=== PATIENT | male | born 1955 | race Caucasian/White ===

== ENCOUNTER 2016-12-25 12:57 | Inpatient (IN) | payer OTHER, MEDICARE ==
[~2016-12-25] VITALS: Ht 185.4 cm; Wt 78.0 kg
--- NOTE | 2016-12-25 13:10 | NUR ---
61 YO MALE BIBA FROM PD. PER PEC, PT WAS ARRESTED THIS AM, PD WAS CALLED AND THERE WAS A PICTURE FOUND ON HIS PHONE OF HIM "HOLDING A GUN IN HIS MOUTH" WHEN ASKED, PT ADMITES TO TAKING THE PICTURE HIMSELF. WHEN ASKED IF SI AT THIS TIME, PT STATES "YES, ALL THE TIME" "MY LAST YEAR, MY BROTHER JUST , IM ALL ALONE NOW" PT TEARFUL AT THIS TIME. SECUIRTY AT BEDSIDE FOR WANDING. PT CHANGING INTO HOSP SCRUBS AT THIS TIME. PT CALM AND COOPERATIVE. SITTER PRESENT.
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
--- NOTE | 2016-12-25 13:47 | NUR ---
SKIN BIOPSY BANDAIDS CHANGED PER PATIENT REQUEST. NEW BANDANGES WITH BACITRACIN APPLIED. PT IS CALM AND C/O BACK PAIN "I USUALLY TAKE 4-5 10MG PERCOCETS EVERY DAY FOR THE PAIN"
[2016-12-25 14:29] LABS: ABSOLUTE BASOPHIL COUNT 0 /CUMM (0.0-0.2); ABSOLUTE EOSINOPHIL COUNT 0 /CUMM (0.0-0.7); ABSOLUTE GRANULOCYTE CT 6.5 /CUMM (1.4-6.5); ABSOLUTE LYMPH COUNT 2.3 /CUMM (1.2-3.4); ABSOLUTE MONOCYTE COUNT 0.4 /CUMM (0.10-0.60); BASOPHIL % 0.3 % (0.0-2.0); EOSINOPHIL % 0.2 % (0-5); GRANULOCYTE % 70.2 % (42.2-75.2); MEAN CORPUSCULAR HGB 29.8 PG (27.0-31.0); MEAN CORPUSCULAR VOLUME 87.8 FL (80.0-94.0); MEAN PLATELET VOLUME 8.3 FL (7.4-10.4); PLATELET COUNT 296 /CUMM (130-400); RED BLOOD CELL CT 4.79 /CUMM (4.70-6.10); WHITE BLOOD CELL COUNT 9.2 /CUMM (4.8-10.8)
--- NOTE | 2016-12-25 14:42 | NUR ---
URINE OBTAINED AND SENT TO LAB.
[2016-12-25] MEDS ORDERED: OXYCODONE-ACET1 EAC1 PO (15:38)
[2016-12-25] MEDS ORDERED: DICLOFENAC POTA50 M1 PO (15:38)
[2016-12-25] MEDS ORDERED: RAMIPRIL5 M1 PO (15:38)
[2016-12-25] MEDS ORDERED: NEURONTIN800 M2 PO (15:38)
[2016-12-25] MEDS ORDERED: ASPIRIN81 M4 PO (15:39)
[2016-12-25] MEDS ORDERED: PANTOPRAZOLE SO40 M1 PO (15:39)
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
--- NOTE | 2016-12-25 16:58 | NUR ---
PT MEDICATED WITH 2 PERCOCETS PER ORDER AT THIS TIME. [facility] CALLED FOR NEUROTIN.PT RESTING ON STRETCHER. OFFERS NO COMPLAINTS AT THIS TIME. SITTER REMAINS PRESRNT
--- NOTE | 2016-12-25 17:10 | IP CRISIS DIAG ASSESS PSYCH ---
See Addendum Diagnostic Assessment Basic Assessment Insurance Authorization: Insurance #1: Insurance name: MEDICARE A Phone number: Policy number: [id number] Group number: Authorization number: 1) Medicare A B- No precert required 2) Massiel livingston [facility]- Called twice and spoke to different representatives. Was told that Shannon would call back for precertification and there were two people ahead in the Que. Will await a call back from Shannon to complete pre- certification. Primary Care Physician: Patient's PCP: PATRICK PATEL MD PCP's Patient's Quote: "I would rather be than be here doing this." Present Illness: The patient is a 61 year old male, brought by the police to the ED with a complaint of suicidal ideation and depression. The patient presented as sad, tearful, depressed, hopeless and helpless. The pt. reports current suicidal ideation, stating "I'd rather be , I would rather be than be doing this." The patient reports no prior suicide attempts. However, the patient reports that he made a suicidal gesture (he took a picture of himself pointing a pistol towards the side of his head), at the beginning of this month. The patient states "I was going to shoot myself. I could not take the emptiness anymore." The patient reports his friend called the police, after seeing the picture and he was arrested for illegal possession of a firearm. The patient reports decreased motivation and energy, interrupted sleep (sleeping approximately 4 hours per night, partly due to chronic pain), and decreased appetite ("I do not eat much and have no appetite."). The patient reports current depression of 8 of 10 and anxiety of 5 of 10 on a scale of 0 to 10, 10 being most severe.The patient denies HI, auditory hallucinations and visual hallucinations. The patient identifies his primary trigger as being very lonely, since the of his approximately 2 years ago (they were for 27 years). He states that recently his brother at the beginning of this month, (he states they were "best friends"). The patient states that due to his feeling lonely, he sent approximately $30,000 to a woman in [place] and $30,000 to a woman in [place], both of which he met on the internet. Additionally, the patient reports renting out three of the rooms, in his single family house. 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 The patient identifies other triggers, as being his finances and not speaking to his children for many years. The patient reports no prior inpatient psychiatric hospitalizations. The patient reports seeing Dr. Jacob Bowman for depression and grief counseling following the of his , but refusing to take the medication prescribed to him. The patient reports he continues to feel severely depressed and unsafe to return home. The patient is agreeable to voluntary admission for inpatient treatment. Spoke to patient's friend, Theo Santos . Theo states that he and the patient have been best friends for over 20 years. Theo reports the patient has been increasingly depressed since the of his . Theo states he speaks with the patient daily and sees him once or twice per week. Theo states the patient has been going through "bouts of depression" that he tries to talk him out of. Theo reports the patient has made suicidal statements in the past. Theo states "Sometimes I feel that if it were not for me, he would have done it." Theo states the patient's depression has worsened since the recent of his brother the beginning of this month. Theo states he is pleased that the patient is getting the help he needs and feels that inpatient treatment weill help him. This report prepared by Zi Javed MSW Wool Sorter and signed off by [facility] Patient's Address: [address] [place] [address] Other Who Do You Live With? Other (see notes) (Pt. rents rooms to 3 tenants) Feel Safe Where You Live? No (Pt. rpts. tenanant is problem) Feel Safe in Your Relationship Yes Marital Status: Do You Have Children? Yes Ages? 38 & 36 Primary Language? Spanish Language(s) Spoken At Home: Spanish Family/Informants Interviewed: Friend-Theo Tom Allergies - Coded Allergies: meperidine (VOMIT 01/02/16) Current Medications - Scheduled Medications Aspirin (Aspirin*) 81 MG TAB.CHEW 1 TAB PO DAILY HEART HEALTH (Reported) Entered as Reported by INDRA VILLAFANA on 12/25/16 153 Diclofenac Potassium 50 MG TABLET 3 TAB PO BID PAIN #180 (Reported) Entered as Reported by INDRA VILLAFANA on 12/25/16 153 Gabapentin (Neurontin) 800 MG TABLET 1 TAB PO TID PAIN #270 (Reported) Entered as Reported by INDRA VILLAFANA on 12/25/16 1538 Oxycodone HCl/Acetaminophen (Oxycodone-Acetaminophen 10-325) 10 MG-325 MG TABLET 1 TAB PO 5 TIMES A DAY PAIN #140 (Reported) Entered as Reported by INDRA VILLAFANA on 12/25/16 153 Pantoprazole Sodium 40 MG TABLET.DR 1 TAB PO DAILY GI #90 (Reported) Entered as Reported by INDRA VILLAFANA on 12/25/16 153 Ramipril 5 MG CAPSULE 1 CAP PO DAILY HEART #90 (Reported) Entered as Reported by INDRA VILLAFANA on 12/25/16 153 Consequences of Psych Med Use: Patient does not take any psychiatric medications currently. Comment: None Lab Results: Laboratory Tests 12/25/16 1428: Urine Opiates Screen 285.00, Methadone Screen < 40, Barbiturate Screen < 60, Ur Phencyclidine Scrn < 6.00, Amphetamines Screen < 100, U Benzodiazepines Scrn < 85, Urine Cocaine Screen < 50, Urine Cannabis Screen < 5.00 12/25/16 1423: Anion Gap 11, Estimated GFR > 60, BUN/Creatinine Ratio 15.6, Glucose 115 H, Calcium 9.9, Total Bilirubin 1.1, AST 15 L, ALT 30, Alkaline Phosphatase 63, Total Protein 7.3, Albumin 4.2, Globulin 3.1, Albumin/Globulin Ratio 1.4, TSH 0.731, Free T4 1.54, CBC w Diff NO MAN DIFF REQ, RBC 4.79, MCV 87.8, MCH 29.8, RDW 13.0, MPV 8.3, Gran % 70.2, Lymphocytes % 24.7, Monocytes % 4.6, Eosinophils % 0.2, Basophils % 0.3, Absolute Granulocytes 6.5, Absolute Lymphocytes 2.3, Absolute Monocytes 0.4, Absolute Eosinophils 0, Absolute Basophils 0, PUBS MCHC 34.0, Serum Alcohol < 10.0 Toxicology Screen Completed? Yes Results: negative Symptoms of Use: N/A Past History Past Medical History Medical History: Diabetes Abuse/Trauma History Trauma History/Current Trauma: Denies Legal History Current Legal Status: Patient on bail for charge of illegal possession of a firearm with next court date of 01/14/17 Have you ever been arrested? Yes Number of Arrests: [address] Dates: 01/14/17 for illegal possession of firearm Marina Manager N/A Psychosocial History Strengths/Capabilities: The patient has insight into his triggers and is able to ask for help. The patient has a supportive best friend. Physical Limitations (Interventions): None noted Psychiatric Treatment History Psych Treatment Psychiatric Treatment Yes Inpatient Treatment No Outpatient Treatment Yes Location of Treatment Dr. Jacob Bowman Reason for Treatment Grief Counseling & Depression Dates of Treatment Approx. 1 year ago Response to Treatment The patient reports refusing to take the medication prescribed by provider and stopped seeing the doctor. Diagnosis by History: Depression Risk Factors: access to lethal means, chronic/serious med cond., history of suicide atmpts (Suicidal gesture), poor impulse control, lack of outcome concern , male, limited support Substance Use/Abuse History Drug Use/Abuse minimum 12mo Hx Substances Used/Abused Yes Substance Used/Abused Prescribed Opiates First Use Approx. 10 years Last Used Today How much used/taken 5 Percocet 10-325 mg daily as needed for pain How often Daily as needed for pain For how long Approx. 10 years Route of use Oral Substance Abuse Treatment Substance Abuse Treatment Past Substance Abuse TX No Inpatient Treatment No Outpatient Treatment No Location of Treatment N/A Reason for Treatment N/A Dates of Treatment N/A Response to Treatment N/A Comments: The patient is on pain management and takes medications as prescribed. Sexual History Sexually Active No # of partners 0 Sexual Orientation Heterosexual Use of Protection Yes Always Sexual Concerns: Patient report not being currently sexually active. Education History Highest Level of Education: high school/GED Preferred Learning Style: experiential Current Mental Status Mental Status Orientation: Person, Place, Situation Affect: Anxious, Depressed, Hopeless, Sad Speech: WNL Neuro-vegetative: Appetite Decreased, Energy Decreased, Helpless, Loss of Interest, Sleep Disturbance Appearance Appearance- Dress/Hygiene: Patient was dressed in hospital scrubs and hygenic. Patient maintained eye contact throughout assessment. Behaviors Thought Process: WNL Thought Content: WNL Memory: WNL Insight: Fair SI/HI Risk Assessment - Minimum 6mo History- Past Suicidal Ideation/Attempts Yes (Pt. put gun to head this month) Current Suicidal Ideation/Att Yes (Pt. reports current thoughts) Past Homicidal Ideation/Att: No Current Homicidal Ideation/Attempts No Degree of Intent: The pt. reports putting a gun to his head earlier this month and taking a picture. The pt. reports "I would rather be " today. Danger To: Self Gravely Disabled: N/A Risk Factors: access to lethal means, chronic/serious med cond., history of suicide atmpts (Suicidal gesture), poor impulse control, lack of outcome concern , male, limited support Lethality Ratin Needs/Init TX Plan/Goals: Patient needs inpatient treatment to stabilize suicidal ideation and depression. Patient needs evaluation for medication to stabilize mood. Patient to participate in group therapy, individual therapy and family planning. AUDIT-C Questionnaire: AUDIT-C Questionnaire: Response Value ETOH use in the past year Never 0 # drinks typical/day Doesn't Drink 0 6 or > drinks per occasion Never 0 Total 0 DSM5/PS Stressors/Medical Prob Diagnosis' (DSM 5, Stressors, Medical): F32.9 Unspecified Depressive Disorder Current GAF: 25 Comments: N/A
--- NOTE | 2016-12-25 17:20 | NUR ---
PT MEDICATED WITH NEUROTIN PER ORDER AT THIS TIME
--- NOTE | 2016-12-25 17:36 | SOCIAL WORKER SOCIAL HX PSYCH ---
Social History Basic Assessment Insurance Authorization: Insurance #1: Insurance name: MEDICARE A Phone number: Policy number: [id number] Group number: Authorization number: Curr Source of Income/Entitlements: SSDI, Rent income and 's pension from [facility] Primary Care Physician: Patient's PCP: PATRICK PATEL MD PCP's Present Problem: None Primary Language? Nicaraguan Language(s) Spoken At Home: Nicaraguan Living Situation Rents or Owns Home? owns Residential Care/Treatment Fac N/A Feel Safe Where You Are Living No (Pt. reports problem tenant) Feel Safe in Relationships? Yes Comments: The patient reports that one of his tenants is a problem and needs to be evicted. Allergies - Coded Allergies: meperidine (VOMIT 01/02/16) Current Medications - Scheduled Medications Aspirin (Aspirin*) 81 MG TAB.CHEW 1 TAB PO DAILY HEART HEALTH (Reported) Entered as Reported by INDRA VILLAFANA on 12/25/16 153 Diclofenac Potassium 50 MG TABLET 3 TAB PO BID PAIN #180 (Reported) Entered as Reported by INDRA VILLAFANA on 12/25/16 153 Gabapentin (Neurontin) 800 MG TABLET 1 TAB PO TID PAIN #270 (Reported) Entered as Reported by INDRA VILLAFANA on 12/25/16 153 Oxycodone HCl/Acetaminophen (Oxycodone-Acetaminophen 10-325) 10 MG-325 MG TABLET 1 TAB PO 5 TIMES A DAY PAIN #140 (Reported) Entered as Reported by INDRA VILLAFANA on 12/25/16 153 Pantoprazole Sodium 40 MG TABLET.DR 1 TAB PO DAILY GI #90 (Reported) Entered as Reported by INDRA VILLAFANA on 12/25/16 153 Ramipril 5 MG CAPSULE 1 CAP PO DAILY HEART #90 (Reported) Entered as Reported by INDRA VILLAFANA on 12/25/16 153 Consequences of Psych Med Use: The patient reports no prescription for psychiatric medications. Comments: None Past History Past Medical History Neurological: NONE EENT: NONE Cardiovascular: CHF, hypertension Respiratory: NONE Gastrointestinal: NONE Hepatic: NONE Renal: NONE Musculoskeletal: NONE Psychiatric: depression Endocrine: PARTIAL THYROIDECTOMY Blood Disorders: NONE Cancer(s): NONE Past Surgical History Surgical History: non-contributory /Family History Place/Country of Origin: [place], [place] Childhood Family Constellation: Mother, Father and Brother Primary Childhood Caretakers: father, mother Family Life During Childhood: The patient reports he had a "good" childhood. The patient reports his parents did struggle with mental health issues. The patient reports having to be in foster care in the first grade when his parents were in [facility] [place] for inpatient tx. DCF Involvement? No Mother's Age (Current/): 59 () Relationship w/Mother: "Good". Mother did have mental health issues and was absent at times. Father's Age (Current/): 73 () Relationship w/Father: "Good." Father dealt with mental health issues and was absent at times. Any Sibling(s)? Yes Sibling's Gender(s)/Age(s): male Sibling 1: (Brother ) Relationship w/Sibling(s): Brother was his "best friend' and early this November, Relationship w/Friends: Patient has a best friend, Theo Santos. Patient speaks to Theo daily and sees him once or twice per week. Family Psych/Sub Abuse/Add Hx: Parents treated inpatient at [facility] [place]. Father reportedly attempted suicide. Other Comments: N/A Abuse/Trauma History Trauma History/Current Trauma: Denies History of Trauma/Abuse Treatment? No Abuse/Trauma Treatment: N/A Legal History Legal Guardian/Address/Phone: N/A Current Legal Status: Pt. on bail and has outstanding charge for illegal possession of a firearm with court date of 01/14/[address] Dates: 01/14/17 Have you ever been arrested Yes Number of Arrests: 1 Hx of Juvenile Legal Charges? No Hx of Adult Legal Charges? Yes If Yes: felony List/Date Most Recent Lgl Chgs: Illegal possession of a firearm-Court date 01/14/17 Chgs/Dts/Incarcerations/Sentnc Illegal possession of a firearm-Court date 01/14/17 Civil Proceedings: Has final court date for zunilda in civil proceeding on 01/05/[address]: N/A Child Protective Serv Involvmnt N/A Settlement Agent N/A Psychosocial History Primary Support System: friend, Best friend Theo Santos Strengths/Capabilities: The patient has insight into his triggers and is able to ask for help. The patient has a supportive best friend. Weaknesses: The patient has limited supports and his being lonely leads to patient making poor decisions and being taken advantage of. Physical Limitations (Interventions): None noted Last Physical: Last week History of Seizures? No History of Blackouts? No ADL Limitations: None [place]/Social/Peer Relations Has a best friend, Theo aSntos. They speak daily and see each other once or twice per week. Meaningful Activities: Motorcycle. Childhood Holiness: Bahai Current Congregation Affiliation: Bahai Is Spirituality Important to You? Yes Patient's Ethnicity: Citizen Of [place], [place] Cultural/Ethnic Issues: None noted Are There Developmental Issues? No Milestones Achieved: fine motor, gross motor Psychiatric Treatment History Psych Treatment Inpatient Treatment No Outpatient Treatment Yes Location of Treatment Dr. Jacob Bowman Reason for Treatment Grief Counseling & Depression Dates of Treatment Approx. 1 year ago Response to Treatment The patient reports refusing to take the medication prescribed by provider and stopped seeing the doctor. Precipitating Factors: Grief re: of spouse and brother. Finances & limited community supports. Current Psychiatric Np: None noted Treatment of Prior Episodes: Dr. Jacob Bowman for grief counseling following the of patient's . Diagnosis: Depression Psychodynamic Issues: Unresolved grief, finances and limited support Risk Factors: access to lethal means, chronic/serious med cond., history of suicide atmpts (Suicidal gesture), poor impulse control, lack of outcome concern , male, limited support Substance Use/Abuse History Drug Use/Abuse Substance Used/Abused Prescribed Opiates First Use Approx. 10 years Last Used Today How much used/taken 5 Percocet 10-325 mg daily as needed for pain How often Daily as needed for pain For how long Approx. 10 years Route of use Oral Explain: The patient has no history of substance abuse or dependence. The patient is on pain management and takes his medication as prescribed. Relapse History? No Explain: N/A Have You Ever Attended AA? No Do You Attend AA Currently? No Do You Have a Sponsor? No Other Community Resources Used: N/A Symptoms of Use: N/A Substance Abuse Treatment Substance Abuse Treatment Inpatient Treatment No Outpatient Treatment No Location of Treatment N/A Reason for Treatment N/A Dates of Treatment N/A Response to Treatment N/A Comments: None Sexual History Sexually Active No # of partners 0 Sexual Orientation Heterosexual Use of Protection Yes Always Sexual Concerns: Patient report not being currently sexually active. Education History Highest Level of Education: high school/GED Highest Grade Completed: 12th grade Vocational Year Completed: N/A Number of College Years: 0 College Degree/Major: N/A Other Degree(s): N/A Preferred Learning Style: experiential HX of Learning Difficulties: Dyslexia Barriers to Learning: Dyslexia Special Communication Needs: None reported Employment History Employment Disability Not in Labor Force: Disabled Vocation/Occupational Hx: Last worked 7 years ago No. of Jobs in Last 5 Years: 0 Attendance: Not applicable Comments: None History Have You Been in The ? Yes If Yes, Explain: Patient honorably discharged from [employer] after serving 4 years Type of Discharge: Honorable Date of Discharge: Unclear Current Mental Status Mental Status Orientation: Person, Place, Situation Affect: Anxious, Depressed, Hopeless, Sad Speech: WNL Neuro-vegetative: Appetite Decreased, Energy Decreased, Helpless, Loss of Interest, Sleep Disturbance Appearance Appearance- Dress/Hygiene: Patient was dressed in hospital scrubs and hygenic. Patient maintained eye contact throughout assessment. Behaviors Thought Process: WNL Thought Content: WNL Memory: WNL Insight: Fair SI/HI Risk Assessment Past Suicidal Ideation/Attempts Yes (Pt. put gun to head this month) Current Suicidal Ideation/Att Yes (Pt. reports current thoughts) Past Homicidal Ideation/Att: No Current Homicidal Ideation/Attempts No Degree of Intent: The pt. reports putting a gun to his head earlier this month and taking a picture. The pt. reports "I would rather be " today. Danger To: Self Gravely Disabled: N/A Risk Factors: Chronic/serious med cond, High Anxiety/Distress, Lack of concern outcome, Male, Poor impulse control Lethality Ratin - Conclusion and Recommendations for treatment - and discharge planning Summary: The patient is deemed to be of acute risk to self and in need of inpatient treatment for depression and sucidal ideation. The patient will be evaluated for medication to stabilize mood. The patient will participate in individual therapy, group therapy and family meetings as required. The patient will participate in discharge planning to plan for continuing care.
--- NOTE | 2016-12-25 17:43 | NUR ---
PT ALLOWED TO TAKE NUMBERS OUT OF PHONE AT THIS TIME PER OCCUPATIONAL HEALTH NURSING DIRECTOR IT WAS OK. PTS VALULBES BAG RESEALED BY THIS RN AND MARA NAYLOR. VALUBLES BAG PLACED BACK IN ER SAFE
--- NOTE | 2016-12-25 20:07 | NUR ---
PT RESTING ON BED WITH EYES CLOSED. NO APPARENT DISTRESS NOTED. SITTER IN PLACE. WILL CONTINUE TO MONITOR.
--- NOTE | 2016-12-25 20:11 | NUR ---
REPORT GIVEN TO CHARLOTTE TOTH ON CPS.
--- NOTE | 2016-12-25 20:24 | NUR ---
SECURITY CALLED FOR PT TRANSPORT TO CPS.
[2016-12-25 21:20] VITALS: BP 121/84
[2016-12-25] MEDS ORDERED: VOLTAREN100 GM EXT (22:40)
[2016-12-25] MEDS ORDERED: CYCLOBENZAPRINE10 M1 PO (22:43)
[2016-12-25] MEDS ORDERED: VITAMIN D250000 UNIT PO (22:45)
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
[2016-12-26 07:48] VITALS: BP 104/62
[2016-12-26 12:11] VITALS: BP 104/72
--- NOTE | 2016-12-26 12:43 | NUR ---
DR. ROSADO REMINDED OF H&P, NO FURTHER ORDERS AT THIS TIME.
--- NOTE | 2016-12-26 14:32 | NUR ---
Eric was visble on the unit throughout the shift. Express some frustation with his medications not being correct. He spoke with the MD regarding this. He now has Remeron ordered and for the am as he takes it at home. He still feels his percocet isn't correct to what he is prescribed at home. He is going to speak to the MD about this. He denies any SH/HI/SI. Napped after lunch.
[2016-12-26 16:00] VITALS: BP 109/70
--- NOTE | 2016-12-26 16:13 | CPS MD/APRN INITIAL ASSE PSYCH ---
Psychiatric Admission Book Illustrator's Note Reviewed: Yes Patient Seen and Examined: Yes Identifying Information: 61yoM with hx of MDD Chief Complaint: "I just said something stupid!" Reaction to Hospitalization: positive History of Present Illness Onset of Illness: one year ago when Circumstances Leading to Admission: police raided home as three of tenants may have been selling stolen goods Problem(s) Justifying Need for Admission: worsening depression and SI Other HPI: Pt notes that he has been having a hard time recently since the of his brother one month ago after of one year ago. He is very isolated with limited resources. Sometimes he does not have enough money for food. He denies SI or HI, but notes that he was overwhelmed when speaking to police. He had a psychiatrist that he say but felt that the precription for klonopin was inappropriate so he never took. Denies manic, psychotic or truama-related sx. Past Psychiatric History Past Diagnosis(es)- if any: Denied, likely MDD Past Precipitating Factors- if any: deaths of close family members - Include inpatient and outpatient treatment Treatment History: None History of Suicide Attempts or Gestures Denied Substance Abuse History: Denied Allergies: Coded Allergies: meperidine (VOMIT 01/02/16) Home Med List: see crisis note - Include any medical condition(s) that may - impact the patient's recovery/remission Past Medical History: chronic pain 2/2 MSK complaints HTN Past History Medical History Neurological: NONE EENT: NONE Cardiovascular: CHF, hypertension Gastrointestinal: NONE Hepatic: NONE Renal: NONE Musculoskeletal: chronic back pain, disk herniation, falls, rheumatoid arthritis , sciatica, spinal stenosis Psychiatric: depression Endocrine: PARTIAL THYROIDECTOMY Blood Disorders: NONE Cancer(s): NONE Other Medical Hx: chronic pain Isolation History: Standard Influenza Vaccine: 08/11/16 Surgical History Surgical History: hernia Repair, shoulder surgeries Psychiatric Family/Social Hx Family History Psychiatric Illness: Denied Substance Use: Denied Suicides: Denied Social History Living Situation: Lives in house and rents to three tenants Significant Relationships (family/friends): Has closer friend Education: HS 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 - #1 Recognizing dangerous situations. - #2 Coping Skills. - #3 Basic information about quitting. Status of Tobacco Cessation Counseling: N/A B/C NO TOB USE Cessation Med Status: No Tobacco Use last 30d Alcohol Screening - ETOH screen POS if BAL >=80 or Audit-C>= M4/F3 Audit-C Score from Diag Assess: 0 Blood Alcohol Level: Laboratory Tests 12/25 1423 Toxicology Serum Alcohol (<10 MG/DL) < 10.0 Alcohol Use Screening Results: Neg per Audit C &/or BAL - If ETOH counseling indicated - the following topics are required. - #1 Express concern about the patient's - drinking at unhealthy levels, include informing - of national norms for moderate drinking: - men <= 14 drinks/week, max 4 drinks/occasion - women <= 7 drinks/week, max 3 drinks/occasion - #2 Providing feedback, including linking alcohol to - negative physical effects (liver injury, hypertension) - negative emotional effects (relationship problems and - depression) - negative occupational consequences (reduced work - performance) - #3 Advising the patient to abstain from alcohol or - to drink below national norms for moderate drinking - (as listed above). Status of ETOH Use Counseling: N/A B/C NO ETOH Use Metabolic Screening - Screen if on a Neuroleptic Medication - Metabolic screening should include: - Blood Pressure, BMI, Glucose or Hgb A1c, & a - Lipid profile from within the past 365 days. Metabolic Screening () Not Applicable, patient not on a neuroleptic. OR () Patient on a neuroleptic(s) . Enter below results for Glucose or Hemoglobin A1C, and lipid panel if obtained during the last 365 days. BMI: Blood Pressure: 109/70 Exam and Plan Mental Status Examination Ambulation Status: freely, no difficulties Appearance: older than stated age Attitude towards examiner: cooperative Psychomotor activity: no retardation or activation Behavior: appropriate Quality of speech: wnl, nl r/r/p Affect: sad, down, non-labile, appropriate Mood: "I'm OK, I just said a stupid thing" Suicidal Ideation: Denied Homicidal Ideation: Denied Hallucinations: Denied Paranoid/Delusional Material: Denied Difficulties with thought organization: None noted Insight: fair Judgment: fair Orientation: a/o x4 Cognition: grossly intact Memory Function: grossly intact Estimate of intellectual functioning: average Assets/Strengths Patient Identified Assets/Strengths: wants to engage in care Impression/Plan Impression and Plan: Pt with likely pph of MDD vs complicated bereavement one year ago now with worsening mood, sleep with increasing isolation. - Start mirtazapine 7.5mg nightly for mood and sleep - Pain meds verified - D/c ACEI given NSAID use, pt is normotensive - Pt open to IOP at [facility] - Encourage groups and intergration into the milieu - Include all active medical diagnosis that require tx DSM 5 Diagnosis(es): Major Depressive Disorder - Initial Tx Plan for Active Psych & Medical Conditions Treatment Plan: Start mirtazapine, likely dc to IOP when ready - Factors that would help patient function - in a less restrictive setting. Factors: more social support
--- NOTE | 2016-12-26 16:57 | History & Physical ---
General Information and HPI History of Present Illness: Mr. Garcia is a 61 yo man who was brought in by the police after making statement about hurting himself. His PMHx is sig for gastric mesh, GERD, diet- controlled DM and various surgeries including thyroid surgery, L kideny surgery due to cyst, b/l knee mesical tear surgery, b/l CTS, b/l rotator cuff and L1-L5 discectomy. He reports being depressed after his 1 year ago and his brother last month. However, denies HI or SI. [facility] and recently had sikn shave biopsy on this thigh. He currently uri any CP, SOB, GI or complaints Allergies/Medications Allergies: Coded Allergies: meperidine (VOMIT 01/02/16) Home Med list Aspirin (Aspirin*) 81 MG TAB.CHEW 1 TAB PO DAILY HEART HEALTH (Reported) Cyclobenzaprine HCl 10 MG TABLET 1 TAB PO DAILY NEEDED PAIN CONTROL ( Reported) Diclofenac Potassium 50 MG TABLET 3 TAB PO BID PAIN (Reported) Diclofenac Sodium (Voltaren) 1 % GEL..GRAM. 1 % EXT DAILY NEEDED PAIN CONTROL (Reported) Ergocalciferol (Vitamin D2) (Vitamin D2) 50,000 UNIT CAPSULE 1 CAP PO Q 2 WEEKS VITAMIN SUPPORT (Reported) Gabapentin (Neurontin) 800 MG TABLET 1 TAB PO TID PAIN (Reported) Oxycodone HCl/Acetaminophen (Oxycodone-Acetaminophen 10-325) 10 MG-325 MG TABLET 1 TAB PO 5 TIMES A DAY PAIN (Reported) Pantoprazole Sodium 40 MG TABLET.DR 1 TAB PO DAILY GI (Reported) Past History Travel History Traveled to [place] past 21 day No Medical History Blood Transfusion Hx: No Neurological: NONE EENT: NONE Cardiovascular: CHF, hypertension Gastrointestinal: NONE Hepatic: NONE Renal: NONE Musculoskeletal: chronic back pain, disk herniation, falls, rheumatoid arthritis , sciatica, spinal stenosis Psychiatric: depression Endocrine: PARTIAL THYROIDECTOMY Blood Disorders: NONE Cancer(s): NONE Other Medical Hx: chronic pain Isolation History: Standard Influenza Vaccine: 08/11/16 Surgical History Surgical History: non-contributory Past Family/Social History Psychosocial History Where do you live? Other ETOH Use: occasional use Illicit Drug Use: denies illicit drug use Employment History Employment Disability Profession/Employer Last worked 7 years ago Review of Systems Review of Systems Constitutional: Denies: see HPI, chills, diaphoresis, fever, malaise, weakness, unexplained weight loss. Exam & Diagnostic Data Last 24 Hrs of Vital Signs/I&O Vital Signs Date Time Temp Pulse Resp B/P Pulse O2 O2 Flow FiO2 Ox Delivery Rate 12/26 1600 80 109/70 12/26 1211 90 104/72 12/26 0748 96.2 95 104/62 12/250 96.6 68 121/84 12/26 2015 98.7 70 16 125/81 98 Room Air Intake & Output 12/26 1600 12/26 0800 12/26 0000 Intake Total 0 Output Total Balance 0 Intake, Oral 0 Patient 78.018 kg Weight Physical Exam General Appearance Alert, Oriented X3, Cooperative, No Acute Distress Skin No Rashes (shave biopsy ) Cardiovascular Regular Rate, Normal S1, Normal S2, No Murmurs Lungs Clear to Auscultation Abdomen Normal Bowel Sounds, Soft, No Tenderness Neurological Normal Gait, Normal Speech, Strength at 5/5 X4 Ext Assessment/Plan Assessment: likely underlying depression -- Labs essentially unremakarlab, d/w Psych attending -- agree with initiating anti depression tx As Ranked By This Provider Problem List: 1. Depressive disorder Core Measures/Miscellaneous Acute Coronary Syndrome ACS Diagnosis: No Cerebrovascular Accident CVA/TIA Diagnosis: No Congestive Heart Failure CHF Diagnosis: No Venous Thromboembolism VTE Risk Factors: No Risk Factors No [facility] VTE prophylaxis d/t: VTE low risk No VTE Pharm Prophylaxis d/t: VTE low risk VTE Diagnosis: No VTE Type: NONE VTE Confirmed by (Test): NONE Severe Sepsis Severe Sepsis Present: No Septic Shock Septic Shock Present: No Miscellaneous Documentation Attending Case Discussed With: n/a Primary Care Physician: PATRICK PATEL MD Patient sees these Specialists [facility] Level of Patient Care: MASON Philip
[2016-12-26 19:30] VITALS: BP 113/60
--- NOTE | 2016-12-26 22:12 | NUR ---
PT IS STABLE WITH FULL RANGE OF AFFECT. OUT IN THE COMMUNITY AND INTERACTING WITH PEERS/STAFF. ATTENDING GROUPS AND BEING POSITIVE. PT TALKS ABOUT HIS WHO AND STATED THAT HE MADE SOME FALSE STATEMENTS THAT HE DID NOT MEAN AND THINKS THAT HE DOES NOT NEED TO BE HERE FOR A LONG TIME. VS ARE STABLE AND DENIES ANY SI/HI TO THIS MHW,.
--- NOTE | 2016-12-27 06:24 | NUR ---
PT APPEARED TO SLEEP WELL.
[2016-12-27 07:40] VITALS: BP 113/69
--- NOTE | 2016-12-27 10:41 | CP SOUTH PROGRESS NOTE PSYCH ---
Psych (Inpt) Progress Note Progress Note Include the following elements, when applicable: Involvement in the active treatment of the patient with behavioral observations of the patient and the patient's response to the treatment. Review of the ongoing treatment process in the context of the treatment plan. Indication of how multi-disciplinary staff members are carrying out the treatment plan. Plans for future interventions and recommendations for revision of the treatment plan. Liaison with other physicians/providers. Progress Note: Pt notes that slept "all night for the first time in a long time." He notes mood is "very good." Was visited yesterday by the tenants that were raided. It seems all legal issues were resolved. He has only known them for a few months and considers them sort of friends. Wants to look into [place] resources as well as resources s/p discharge. Current Medications Sig/Aamir Start time Last Medication Dose Route Stop Time Status Admin Aspirin 81 MG DAILY 12/26 1000 AC 12/27 PO 0751 Cyclobenzaprine HCl 10 MG DAILY NEEDED 12/25 2300 AC PO Diclofenac Sodium 50 MG BID 12/26 2200 AC 12/27 PO 0751 Diclofenac Sodium 50 MG BID PRN 12/25 2300 DC 12/26 PO 12/26 2159 1005 Diclofenac Sodium 1 CHAPO DAILY NEEDED PRN 12/25 2300 AC TOP Docusate Sodium 100 MG AT BEDTIME 12/26 2200 AC 12/26 PO 2129 Ergocalciferol 50,000 IU Q 2 WEEKS 01/02 1000 AC PO Gabapentin 800 MG TID 12/26 1000 AC 12/27 PO 0751 Hydroxyzine HCl 10 MG 4 TIMES/DAY PRN 12/25 2330 AC PO Mirtazapine 7.5 MG AT BEDTIME 12/26 2200 DC PO Mirtazapine 7.5 MG AT BEDTIME 12/26 2200 AC 12/26 PO 2129 Mirtazapine 7.5 MG DAILY 12/26 1154 DC 12/26 PO 1343 Omeprazole 40 MG DAILY AC 12/26 0700 AC 12/27 PO 0637 Oxycodone/ 2 TAB Q4P PRN 12/26 1615 AC 12/27 Acetaminophen PO 0649 Oxycodone/ 2 TAB Q6P PRN 12/26 1200 DC 12/26 Acetaminophen PO 1344 Oxycodone/ 1 TAB Q6P PRN 12/25 2300 DC 12/26 Acetaminophen PO 0641 Senna 187 MG AT BEDTIME 12/26 2200 AC 12/26 PO 2129 Laboratory Tests 12/25 12/25 12/25 2315 1428 1423 Chemistry Sodium (137 - 145 mmol/L) 138 Potassium (3.5 - 5.1 mmol/L) 4.1 Chloride (98 - 107 mmol/L) 101 Carbon Dioxide (22 - 30 mmol/L) 26 Anion Gap (5 - 16) 11 BUN (9 - 20 mg/dL) 14 Creatinine (0.7 - 1.2 mg/dL) 0.9 Estimated GFR (>60 ml/min) > 60 BUN/Creatinine Ratio (7 - 25 %) 15.6 Glucose (65 - 99 mg/dL) 115 H Calcium (8.4 - 10.2 mg/dL) 9.9 Total Bilirubin (0.2 - 1.3 mg/dL) 1.1 AST (17 - 59 U/L) 15 L ALT (21 - 72 U/L) 30 Alkaline Phosphatase (< 127 U/L) 63 Total Protein (6.3 - 8.2 g/dL) 7.3 Albumin (3.5 - 5.0 g/dL) 4.2 Globulin (1.9 - 4.2 gm/dL) 3.1 Albumin/Globulin Ratio (1.1 - 2.2 %) 1.4 Vitamin B12 Cancelled TSH (0.270 - 4.200 uIU/mL) 0.731 Free T4 (0.78 - 2.44 ng/dL) 1.54 Hematology CBC w Diff NO MAN DIFF REQ WBC (4.8 - 10.8 /CUMM) 9.2 RBC (4.70 - 6.10 /CUMM) 4.79 Hgb (14.0 - 18.0 G/DL) 14.3 Hct (42 - 52 %) 42.0 MCV (80.0 - 94.0 FL) 87.8 MCH (27.0 - 31.0 PG) 29.8 RDW (11.5 - 14.5 %) 13.0 Plt Count (130 - 400 /CUMM) 296 MPV (7.4 - 10.4 FL) 8.3 Gran % (42.2 - 75.2 %) 70.2 Lymphocytes % (20.5 - 51.1 %) 24.7 Monocytes % (1.7 - 9.3 %) 4.6 Eosinophils % (0 - 5 %) 0.2 Basophils % (0.0 - 2.0 %) 0.3 Absolute Granulocytes (1.4 - 6.5 /CUMM) 6.5 Absolute Lymphocytes (1.2 - 3.4 /CUMM) 2.3 Absolute Monocytes (0.10 - 0.60 /CUMM) 0.4 Absolute Eosinophils (0.0 - 0.7 /CUMM) 0 Absolute Basophils (0.0 - 0.2 /CUMM) 0 PUBS MCHC (33.0 - 37.0 G/DL) 34.0 Toxicology Urine Opiates Screen (>2000 NG/ML) 285.00 Methadone Screen (>300 NG/ML) < 40 Barbiturate Screen (>200 NG/ML) < 60 Ur Phencyclidine Scrn (>25 NG/ML) < 6.00 Amphetamines Screen (>1000 NG/ML) < 100 U Benzodiazepines Scrn (>200 NG/ML) < 85 Urine Cocaine Screen (>300 NG/ML) < 50 Urine Cannabis Screen (>50 NG/ML) < 5.00 Serum Alcohol (<10 MG/DL) < 10.0 Vital Signs Date Time Temp Pulse Resp B/P Pulse O2 O2 Flow FiO2 Ox Delivery Rate 12/27 0740 95.1 64 113/69 12/26 1930 96.1 71 113/60 12/26 1600 80 109/70 12/26 1211 90 104/72 MSE Appears as stated age. Cooperative behavior, good, appropriate eye contact. Nl speech rate and prosody. No psychomotor retardation or agitation. Mood fine Affect euthymic, full range, appropriate, non-liable. Linear and goal directed thought process. Denies SI or HI. Does not appear to be responding to internal stimuli. Denies AVHs, paranoia, or delusions. I/J: limited Pt with likely pph of MDD vs complicated bereavement one year ago now with worsening mood, sleep with increasing isolation. - Cont mirtazapine 7.5mg nightly for mood and sleep - Pain meds verified - D/c ACEI given NSAID use, pt continues to be normotensive - Pt open to IOP at [facility], Wants to look into [place] resources as well as resources s/p discharge. - Encourage groups and intergration into the milieu
[2016-12-27 12:14] VITALS: BP 120/68
--- NOTE | 2016-12-27 13:19 | NUR ---
PT IS COMPLIANT AND COOPERATIVE WITH UNIT RULES. PT IS OUT IN COMMUNITY ITNERACTING WELL WITH STAFF AND PEERS. PT MOOD IS STABLE WTIH A CONSTRICTED AFFECT. PT IS ATTENDING GROUPS. PT GOAL THIS MORNING WAS TO KEEP SPIRTS UP. PT DENIES SI THOUGHTS.
[2016-12-27 15:41] VITALS: BP 116/66
[2016-12-27 20:08] VITALS: BP 113/63
--- NOTE | 2016-12-27 22:21 | NUR ---
PATIENT ALERT AND ORIENTED X3, CALM AND COOPERATIVE ON UNIT; HE DENIES SUICIDAL IDEATION; HE HAS BEEN PRESENT IN [place] AT TIMES, RESTING IN ROOM AT TIMES, DURING EVENING; PATIENT PLEASANT WHEN INTERACTING WITH PEERS AND STAFF BUT REMAINS SOMEWHAT QUIET, AND KEEPS TO HIMSELF AT TIMES; PATIENT DID NOT ATTEND WRAP UP GROUP; VITAL SIGNS WNL.
[2016-12-28 07:34] VITALS: BP 123/76
--- NOTE | 2016-12-28 07:44 | NUR ---
PATIENT AWAKE AT 0530 BUT SLEPT ALL NIGHT.
--- NOTE | 2016-12-28 13:46 | NUR ---
PT IS COMPLIANT AND COOPERATIVE WITH UNIT RULES. PT IS OUT IN COMMUNITY INTERACTING WELL WITH STAFF AND PEERS. PT IS ACTIVE IN GROUPS. PT MOOD IS STABLE WTIH A FULL RANGE AFFECT. PT STATES HE IS READY TO LEAVE AND GOAL THIS MORNING WAS TO MEET WITH SOCIAL WORKERS TO START PLANNING DISCHARGE PLAN. PT DENIES SI THOUGHTS.
--- NOTE | 2016-12-28 14:49 | CP SOUTH PROGRESS NOTE PSYCH ---
Psych (Inpt) Progress Note Progress Note Progress Note: I discussed this patient's progress to date, current mental status, treatment process in the context of the treatment plan, and discharge planning with staff/ team in the daily morning inpatient team meeting. I also met with the patient myself in individual session. A total of 25 minutes was spent with the patient with more than 50% spent in counseling and/or coordination of care. SUBJECTIVE: "I don't feel depressed. I don't feel impulsive. I don't have mood swings." OBJECTIVE: Current Medications Sig/Aamir Start time Last Medication Dose Route Stop Time Status Admin Aspirin 81 MG DAILY 12/26 1000 AC 12/28 PO 0755 Cyclobenzaprine HCl 10 MG DAILY NEEDED 12/25 2300 AC PO Diclofenac Sodium 50 MG BID 12/26 220 AC 12/28 PO 0755 Diclofenac Sodium 1 CHAPO DAILY NEEDED PRN 12/25 2300 AC TOP Docusate Sodium 100 MG AT BEDTIME 12/26 2200 AC 12/27 PO 2117 Ergocalciferol 50,000 IU Q 2 WEEKS 01/02 1000 AC PO Escitalopram Oxalate 5 MG 0812/29 0800 UNVr PO Gabapentin 800 MG TID 12/26 1000 AC 12/28 PO 1625 Hydroxyzine HCl 10 MG 4 TIMES/DAY PRN 12/25 2330 AC PO Mirtazapine 7.5 MG AT BEDTIME 12/26 2200 DC 12/27 PO 2117 Omeprazole 40 MG DAILY AC 12/26 0700 AC 12/28 PO 0529 Oxycodone/ 2 TAB Q4P PRN 12/26 1615 AC 12/28 Acetaminophen PO 1445 Senna 187 MG AT BEDTIME 12/26 2200 AC 12/27 PO 2117 Vital Signs Date Time Temp Pulse Resp B/P Pulse O2 O2 Flow FiO2 Ox Delivery Rate 12/28 733 97.2 78 123/76 12/28 2007 97.4 70 113/63 12/27 1541 72 116/66 ASSESSMENT: Patient presents today as calm and cooperative, somewhat irritable because he states he was told that he would leave the hospital today. He has signed a three-day paper. Patient states that he continues to mourn his and brother recently . States it difficult to be in this hospital because this is where his . Patient denies suicidal ideation. States the picture that he took of him pointing a gun at himself was intended to disturb the people/woman in [place] who cheated him out of money, "I was lonely." He is estranged from his children, states has only one friend to call, no family to call. His one friend agrees to come in for a family meeting. Patient is prescribed pain medication, including gabapentin. He is on the Social Security Disability for back and shoulder pain. Depression:0/10; Anxiety:0/10 (with 10 the worst.) Patient states he continues to be in mourning for his , and brother. He briefly attended a [place] bereavement group up until 2015. Denies suicidal ideation, homicidal ideation, auditory hallucinations, visual hallucinations, paranoid ideation. Patient states and also believes that he will not kill himself. Speech is well articulated, goal-directed, average in rate, volume and tone. The patient understands the risks/benefits/side effects of the medication and is agreeable to continue taking them. PLAN: Start Lexapro for depression. Continue with current management as patient is improving. Continue to provide support and encouragement.
--- NOTE | 2016-12-28 15:32 | SOCIAL WORKER TX PLAN PSYCH ---
Treatment Plan - Please Document: - Evidence that there is ongoing collaboration between - the patient and the interdisciplinary team, - including the patient's active participation and - responsibility for engaging in the treatment regimen, - and that the treatment plan is individualized and - relevant to the patient's conditions. - Treatment plan should reflect documentation indicating - that all active therapeutic efforts are included. Strengths/Capabilities: The patient has insight into his triggers and is able to ask for help. The patient has a supportive best friend. Physical Limitations (Interventions): None noted Patient Identified Trmt Goals: " I want to get home, I feel fine." Discharge Plan: IOP Problem/Goals #1 Problem #1: suicidal ideation Goal (Short Term): Today I will attend 2 groups Today I will identify 2 stressors Today I will identify 2 positive supports Today I will work on recognizing 3 emotions I am feeling Goal (Senior Scientist): Be free of suicidal thoughts/attempts Develop 3 coping skills to deal with depression Identify 3 positive support systems to call in crisis Develop a crisis plan with 3 [place] people Identify 2 positive traits per week about myself Identify 2 things I have to look forward to Identify 2 positive people in my life and 1 thing I appreciate about them Interventions: Learn ways to manage depressive symptoms accordingly and identify positive supports to manage life stressors and mood fluctuations. Modalities: Encourage groups, education on depression, provide CBT treatment, family meeting. DSM5/PS Stressors/Medical Prob Diagnosis' (DSM 5, Stressors, Medical): F32.9 Unspecified Depressive Disorder Current GAF: 25 Treatment Team - Responsibilities of members of the treatment team include: - Medication Management- MD or ELECTRONIC EQUIPMENT INSTALLER - Medication Administration and Monitoring- Nurse - Group Therapy- Occupational Therapist - 1:1 Therapy,Disch Planning,family involvement-Field Service Technician [employer]oultry
--- NOTE | 2016-12-28 15:52 | SOCIAL WORKER PROG NOTE PSYCH ---
Social Work Progress Note Progress Note STEVE met with patient for the first time today. Patient presented with normal mood and normal affect. Patient reported that he would like to discharge the hospital as soon as possible and does not feel he needs to be here. Patient signed 3 day paper today. Patient reports that he has had some stressful situations in his life over the past few years including loss of his and a close friend. Patient reports recently being scammed on dating sight and lost $30,000. Patient reports that he sent picture with gun with no intent to actually hurt himself but because he was upset and wanted to get back at the scammer. Patient denies any hx of SI and no past attempts. Patient does reports some depression mainly related to his wifes . Patient agreed to have his friend, Josef, come in for a family meeting. Josef is coming in tomorrow at 3:45pm.
[2016-12-28 16:03] VITALS: BP 151/85
[2016-12-28 19:45] VITALS: BP 116/69
--- NOTE | 2016-12-28 22:14 | NUR ---
PT IS CALM, COOPERATIVE WITH STAFF AND PEERS, AND COMPLIANT WITH UNIT RULES. PT IS OFTEN IN [place], INTERACTING WELL WITH OTHERS. PT MOOD IS STABLE, AFFECT APPEARS EUTHYMIC TO FULL RANGE, COMMUNICATION IS ORGANIZED AND APPEARS NORMAL IN ALL RESPECTS, AND APPETITE IS NORMAL. PT DENIES SI AT THIS TIME. DURING WRAP UP GROUP PT MADE A COMMENT THAT HE IS UPSET WITH THE PROPELLANT ASSEMBLER PSYCHIATRIST, WHO HE CLAIMS TO HAVE MADE HIM BELIEVE HE WOULD BE DISCHARGED BY WEDNESDAY. UPON LEARNING THIS NOT TO BE TRUE TODAY, PT HAD BECOME UPSET, STATING DURING THE GROUP THAT ONCE DISCHARGED HE PLANS TO TRAVEL TO WHERE THE PROPELLANT ASSEMBLER PSYCHIATRIST WORKS (WHICH HE CLAIMS TO KNOW WHERE - PT CALIMS IT TO BE [place]? DID NOT REMEMBER WHICH IF HE HAD SPECIFIED ) AND DISCUSS THIS MATTER WITH THEM. AFTER THE GROUP THE CHARGE NURSE WAS NOTIFIED OF THE COMMENT AND A NOTE WAS WRITTEN FOR THE PT'S MAINTENANCE MILLWRIGHT ADDRESSING THE ISSUE.
--- NOTE | 2016-12-29 06:08 | NUR ---
SLEPT WELL UNTIL 329 THEN UP IN LOUNGE C/O BACK DISCOMFORT, BED TOO SOFT
[2016-12-29 08:25] VITALS: BP 120/69
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
[2016-12-29 12:29] VITALS: BP 139/69
--- NOTE | 2016-12-29 13:53 | NUR ---
PT IS OUT IN THE COMMUNITY, SOCIALIZING WITH PEERS/STAFF. VERY UPBEAT, POSITIVE, FULL RANGE OF AFFECT. ATTENDING ALL GROUPS AND SETTING GOAL TO MAKE PLANS FOR DC. PT IS PLANNING ON GOING TO IOP AFTER DC AND IS LOOKING FORWARD TO "GETTING OUT". VS ARE STABLE AND DENIES ANY SI/HI TO THIS MHW.
[2016-12-29 16:01] VITALS: BP 132/70
--- NOTE | 2016-12-29 17:01 | SOCIAL WORKER PROG NOTE PSYCH ---
Social Work Progress Note Progress Note Patient had family meeting today with his closest friend Josef. Josef has known patient for over 30 years and appears to be patients biggest support. He reports that patient is usually very open and communicates well with him. He is aware that patient has been suffering with some depression mostly related to his and brothers loss over the past year and a half. Josef agreed that patients decision making and reactive/impulsive behaviors lately have not been healthy and are not typical of patient. He agreed that patient needs to develop a positive support community in addition to his support and is in support for IOP post discharge from the hospital. Patient has agreed to attend and we are tentatively planning for discharge on . Josef reported that he does not have any concerns about patient returning home and does believe he will be safe and will not hurt himself. He did report some concerns with patients tenant who rents the space for the [employer] shop. He urged patient to keep his distance as much as possible and focus on himself going forward.
[2016-12-29 20:06] VITALS: BP 133/82
--- NOTE | 2016-12-29 20:55 | NUR ---
PT IS CALM, COOPERATIVE WITH STAFF AND [EERS, AND COMPLIANT WITH UNIT RULES. PT IS OFTEN IN [place] AND IS INTERACTING WELL WITH OTHERS. MOOD IS STABLE, AFFECT IS EUTHYMIC TO FULL RNAGE, COMMUNICATION IS ORGANIZED AND APPEARS NORMAL IN ALL RESPECTS, AND APPETITE IS NORMAL. PT DENIES SI AT THIS TIME.
--- NOTE | 2016-12-30 06:24 | NUR ---
PT UP AT 0230, COMPLAINING OF INABILITY TO SLEEP, INCLUDING PROBLEM SLEEPING IN THE UNCOMFORTABLE BED. PT WOULD LIKE TO SWITCH MATTRESSES. PERCOCET 2 X 2 PRNs. PT BACK IN BED AFTER 5AM.
[2016-12-30 07:38] VITALS: BP 137/79
--- NOTE | 2016-12-30 11:44 | NUR ---
PT IS COMPLIANT AND COOPERATIVE WITH UNIT RULES. PT IS OUT IN THE COMMUNITY INTERACTING WELL WITH STAFF AND PEERS. PT IS ATTENDING GROUPS. PT MOOD IS STABLE WITH A FULL RANGE AFFECT. PT IS THINKING ABOUT DISCHARGE TOMORROW TO [facility]. PT DENIES SI THOUGHTS.
[2016-12-30 12:03] VITALS: BP 144/81
[2016-12-30 12:20] VITALS: BP 141/81
--- NOTE | 2016-12-30 14:58 | SOCIAL WORKER PROG NOTE PSYCH ---
Social Work Progress Note Progress Note Patient presents with normal mood and affect congruent to mood. Patient reports looking forward to discharge tomorrow. He reports feeling that our family meeting with his friend, Josef, yesterday was beneficial. He agreed that it was important for Josef to hear our perspective on patients recent poor decision making/impulse/judgement. Patient feels grateful to have Josef in his life and have his support going forward. Patient is planning for discharge tomorrow. He has intake at [facility] tomorrow at 11:30am.
[2016-12-30 15:50] VITALS: BP 123/73
--- NOTE | 2016-12-30 18:35 | CP SOUTH PROGRESS NOTE PSYCH ---
Psych (Inpt) Progress Note Progress Note Progress Note: I discussed this patient's progress to date, current mental status, treatment process in the context of the treatment plan, and discharge planning with staff/ team in the daily morning inpatient team meeting. I also met with the patient myself in individual session. A total of 25 minutes was spent with the patient with more than 50% spent in counseling and/or coordination of care. SUBJECTIVE: "I'm glad I stayed here. I learned some new things, I needed this. " OBJECTIVE: Current Medications Sig/Aamir Start time Last Medication Dose Route Stop Time Status Admin Aspirin 81 MG DAILY 12/26 1000 AC 12/30 PO 0758 Cyclobenzaprine HCl 10 MG DAILY NEEDED 12/25 2300 AC 12/29 PO 2141 Diclofenac Sodium 50 MG BID 12/26 2200 AC 12/30 PO 0758 Diclofenac Sodium 1 CHAPO DAILY NEEDED PRN 12/25 2300 AC 12/29 TOP 1803 Docusate Sodium 100 MG AT BEDTIME 12/26 2200 AC 12/29 PO 2141 Ergocalciferol 50,000 IU Q 2 WEEKS 01/02 1000 AC PO Escitalopram Oxalate 5 MG 0812/29 0800 AC 12/30 PO 0758 Gabapentin 800 MG TID 12/26 1000 AC 12/30 PO 1601 Hydroxyzine HCl 10 MG 4 TIMES/DAY PRN 12/25 2330 AC PO Omeprazole 40 MG DAILY AC 12/26 0700 AC 12/30 PO 0653 Oxycodone/ 2 TAB Q4P PRN 12/26 1615 AC 12/30 Acetaminophen PO 1602 Senna 187 MG AT BEDTIME 12/26 2200 AC 12/29 PO 2141 Vital Signs Date Time Temp Pulse Resp B/P Pulse O2 O2 Flow FiO2 Ox Delivery Rate 12/30 1550 73 123/73 12/30 1220 71 141/81 12/30 1203 71 144/81 / 0738 96.8 73 137/79 12/29 2005 97.9 83 133/82 ASSESSMENT: Patient reports he is doing well. States he feels that he will be ready for discharge tomorrow. Is looking forward to attending [facility], intake appointment tomorrow at 11:30 AM. Patient appears to have more insight into why he made a suicidal gesture, and other recent actions which have shown poor judgment. Depression:0/10; Anxiety:0/10 (with 10 the worst.) Denies suicidal ideation, homicidal ideation, auditory hallucinations, visual hallucinations, paranoid ideation. Patient states and also believes that he will not kill himself. Speech is well articulated, goal-directed, average in rate, volume and tone. The patient understands the risks/benefits/side effects of the medication and is agreeable to continue taking them. PLAN: Anticipate discharge tomorrow morning to IOP intake. Continue with current management as patient is improving. Continue to provide support and encouragement.
[2016-12-30 19:39] VITALS: BP 116/74
--- NOTE | 2016-12-30 20:31 | NUR ---
PT IS CALM, COOPERATIVE WITH STAFF AND PEERS, AND COMPLIANTW ITH UNIT RULES. PT IS OFTEN IN [place], AND INTERACTING WELL WITH OTHERS. MOOD IS STABLE, AFFECT IS FULL RNAGE, COMMUNICATION IS ORGANIZED AND NORMAL IN ALL RESPECTS, AND APPETITE IS NORMAL. PT DENIES SI AT THIS TIME.
--- NOTE | 2016-12-31 06:36 | NUR ---
PT EVENTUALLY SLEPT. PROBABLE DC TODAY. PERC PRNs ON A 4-5 HOUR REGULAR BASIS.
[2016-12-31 07:43] VITALS: BP 140/77
--- NOTE | 2016-12-31 08:05 | CP SOUTH PROGRESS NOTE PSYCH ---
Psych (Inpt) Progress Note Progress Note Progress Note: I discussed this patient's progress to date, current mental status, treatment process in the context of the treatment plan, and discharge planning with staff/ team in the daily morning inpatient team meeting. I also met with the patient myself in individual session. A total of 30 minutes was spent with the patient with more than 50% spent in counseling and/or coordination of care. SUBJECTIVE: "I'm glad that I was here. I've learned a lot." OBJECTIVE: Current Medications Sig/Aamir Start time Last Medication Dose Route Stop Time Status Admin Aspirin 81 MG DAILY 12/26 1000 AC 12/30 PO 0758 Cyclobenzaprine HCl 10 MG DAILY NEEDED 12/25 2300 AC 12/30 PO 2210 Diclofenac Sodium 50 MG BID 12/26 2200 AC 12/30 PO 2122 Diclofenac Sodium 1 CHAPO DAILY NEEDED PRN 12/25 2300 AC 12/29 TOP 1803 Docusate Sodium 100 MG AT BEDTIME 12/26 2200 AC 12/30 PO 2123 Ergocalciferol 50,000 IU Q 2 WEEKS 01/02 1000 AC PO Escitalopram Oxalate 5 MG 0800 12/29 0800 AC 12/30 PO 0758 Gabapentin 800 MG TID 12/26 1000 AC 12/30 PO 2123 Hydroxyzine HCl 10 MG 4 TIMES/DAY PRN 12/25 2330 AC PO Omeprazole 40 MG DAILY AC 12/26 0700 AC 12/31 PO 0604 Oxycodone/ 2 TAB Q4P PRN 12/26 1615 AC 12/31 Acetaminophen PO 0605 Senna 187 MG AT BEDTIME 12/26 2200 AC 12/30 PO 2122 Vital Signs Date Time Temp Pulse Resp B/P Pulse O2 O2 Flow FiO2 Ox Delivery Rate 12/31 0743 97.1 73 140/77 / 1939 97.6 75 116/74 04/05 1550 73 123/73 04/05 1220 71 141/81 04/05 1203 71 144/81 ASSESSMENT: Today met the patient along with child welfare social worker Kerry. Patient reports that he feels safe and ready for discharge. Has consistently denied suicidal ideation while he has been on the unit. The patient and I later discussed his discharge in the context of a serious suicidal gesture, and comments in the emergency department that he was having chronic suicidal ideation. Patient agrees to attend [facility], and understands that he can return to the ER, discussed problems with IOP staff, and reach out to his friend Josef if he should again be feeling severely depressed with suicidal ideation. Patient states that he has gained increased insight during his stay here. Patient had made a suicidal gesture at home with a handgun. Patient states that he has no guns of his own in his home, and is not allowing any handguns in the home by any of his tenants. I spoke today with the patient's outpatient psychiatrist, Dr. Teo Flanagan, who told me that the patient had a history of PTSD from his service in the [employer]. The patient is estranged from his adult children, and Dr. Teo Mcgregor feels that it would be important for the patient to discuss this in IOP treatment. In addition the patient has had numerous financial indiscretions in the past. Dr. Teo Mcgregor stated that he will be happy to have the patient back in his practice, after completion of IOP. Depression:0/10; Anxiety:0/10 (with 10 the worst.) Denies suicidal ideation, homicidal ideation, auditory hallucinations, visual hallucinations, paranoid ideation. Patient states and also believes that he will not kill himself. He reports that he is not sleeping well while here, because the mattress is not comfortable. His looking forward to returning home, where he is able to sleep well on his mattress at home. States his appetite is good. Tolerating medications well, without complaint. Speech is well articulated, goal-directed, average in rate, volume and tone. Calm, cooperative and pleasant. Alert and oriented 3. The patient understands the risks/benefits/side effects of the medication and is agreeable to continue taking them. PLAN: Discharge today to IOP intake. Consider increasing Lexapro during IOP. R/O mood disorder. Continue with current management as patient has demonstrated improvement. Continue to provide support and encouragement.
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
--- NOTE | 2016-12-31 10:39 | SOCIAL WORKER PROG NOTE PSYCH ---
Social Work Progress Note Progress Note Patient to discharge the hospital today. Patient denies SI/HI/AH/VH at present and reports this hospitalization has opened him up to seeking treatment for depression/bereavement issues when he returns home. Patient will be attending IOP intake today at at 11:30am. Patient reports being interested in starting the program and engaging with new people. Patient plans to return to his residence today and is able to contract for safety. He identifies his friend, Josef, as his main support at this time.
[2016-12-31] MEDS ORDERED: LEXAPRO5 M1 PO (10:55)
--- NOTE | 2016-12-31 12:13 | NUR ---
PT IS PRESENT ON THE UNIT AND SOCIAL AND APPROPRIATE WITH PEERS AND STAFF, MOOD STABLE WITH FULL RANGE AFFECT, WHEN ASKED DIRECTLY DENIES SI/HI/HALLUCINATIONS, REPORTS + UNDERSTANDING RE: MEDICATIONS AND FOLLOW-UP DISCHARGE DISPOSITION, W-10 REVIEWED WITH PT AND DENIES QUESTIONS/CONCERNS. INFORMATION PACKET RE: DEPRESSION AND SI GIVEN TO PT WELL AND PT RESOURCE GUIDE REVIEWED WITH PT ALONG WITH PERTINENT NUMBER I.[id number]., [facility], [facility], [facility]. PT REPORTS OVERALL IMPROVEMENT IN MOOD, BEHAVIOR, MENTAL STATUS, SLEEP AND APPETITE & FUTURE ORIENTED.
== END 2016-12-31 12:30 | DRG 881 ==
LOC: ERH 12:57 → CP SOUTH 15:48 → ERHI 15:48 → CP SOUTH 20:37
PROVIDERS: Emergency Medicine; ADMIT Psychiatry & Neurology Addiction Medicine
DX: F32.9 Major depressive disorder, single episode, unspecified (principal); I11.0 Hypertensive heart disease with heart failure; I50.9 Heart failure, unspecified; M06.9 Rheumatoid arthritis, unspecified; M54.30 Sciatica, unspecified side; M48.00 Spinal stenosis, site unspecified; M54.9 Dorsalgia, unspecified
CPT/HCPCS: 80307; 90834; 93005; 93010; G0480; J3101; J3490